=== PATIENT | female | born 1955 | race Caucasian/White ===

== ENCOUNTER 2023-05-21 16:33 | Emergency (ER) | payer OTHER, SELFPAY ==
[2023-05-21 16:40] VITALS: BP 135/76
[2023-05-21 17:00] LABS: % Basophils 0.3 % (0-2); % Eosinophils 1.3 % (0-6); % Immature Granulocytes 0.2 % (0-0.5); % Lymphocytes 24.7 % (20.5-51.1); % Monocytes 8.2 % (1.7-9.3); % Neutrophils 65.3 % (42.2-75.2); Absolute Eosinophils 0.1 10^3/uL (0-0.7); Absolute Lymphocytes 1.6 10^3/uL (1.2-3.4); Absolute Monocytes 0.5 10^3/uL (0.1-0.6); Absolute Neutrophils 4.2 10^3/uL (1.4-6.5); Hematocrit 38.2 % (37.0-47.0); Mean Platelet Volume 9.9 fL (7.4-10.4); Nucleated Red Blood Cells % 0 %; Platelet Count 231 10^3/uL (130-400); Red Blood Cell Count 3.94 10^6/uL (4.20-5.40); Red Cell Dist. Width 12.4 % (11.5-14.5); White Blood Cell Count 6.4 10^3/uL (4.8-10.8)
[2023-05-21 17:06] LABS: Urine Albumin Negative (Neg - Trace); Urine Bilirubin Negative (Negative); Urine Character Clear (Clear); Urine Color Yellow; Urine Glucose Negative (Negative); Urine Ketone Negative (Negative); Urine Leukocyte Negative (Negative); Urine Nitrite Negative (Negative); Urine Occult Blood Negative (Negative); Urine Urobilinogen Negative (Neg - 1+)
[2023-05-21 17:15] LABS: ALT (SGPT) 20 U/L (0-35); AST (SGOT) 35 U/L (14-36); Albumin 4.7 g/dl (3.5-5.0); Alkaline Phosphatase 63 U/L (38-126); Blood Urea Nitrogen 18 mg/dl (7-17); Calcium 9.3 mg/dl (8.4-10.2); Carbon Dioxide 30 mmol/L (22-30); Chloride 101 mmol/L (98-107); Glucose 101 mg/dl (70-99); Lipase 169 U/L (23-300); Potassium 4.1 mmol/L (3.5-5.1); Sodium 135 mmol/L (135-145); Total Bilirubin 0.4 mg/dl (0.2-1.3); Total Protein 7.4 g/dl (6.3-8.2); eGFR > 60.00
[2023-05-21 18:11] VITALS: BMI 24.1
[2023-05-21 18:13] VITALS: BP 143/80
--- NOTE | 2023-05-21 18:18 | ED.GENMED ---
History of Present Illness
General
Chief Complaint: Abdominal Pain
Source: patient and spouse
Exam Limitations: none
Time Seen by Provider: 05/21/23 17:56
Nursing documentation reviewed up to this point in time: agreed with
Travel History
Have you had any contact with someone who has COVID-19?: No
Do you have any symptoms of coronavirus? Fever > 100 degrees, chills, cough, shortness of breath, sore throat, loss of taste or smell, muscle aches, or headache?: No
History of Present Illness
History of Present Illness:
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
few days with radiation to the right flank associated nausea no vomiting no diarrhea.
Past History
Past History
ED Past Medical History: Asthma, Other and Other
ED Past Surgical History: None and Orthopedic
Social History
Tobacco: Non-smoker
Alcohol: None
Drug: None
Personal:
Living: with family
Employment: Other
Family History
Family History: Other
Review of Systems
Review of Systems
Allergies reviewed?: Yes
All Other Systems: ROS reviewed and negative except as documented in HPI and ROS
Phy Exam
Physical Exam
Physical Exam:
GENERAL: Alert , in no apparent distress
EYE: pupils equal and reactive
NECK: Supple, no significant adenopathy.
ENT: o/p clr, mmm.
CARDIAC: Regular rate and rhythm .
LUNGS: Clear breath sounds bilaterally, no acute respiratory distress, no wheezes/rales/rhonchi
ABDOMEN: Right lower quad abdominal pain otherwise soft benign abdomen
NEUROLOGICAL: Alert and oriented, no focal neuro deficits
SKIN: Warm and dry, skin intact.
MUSCULOSKELETAL: No edema, well perfused.
PSYCH: Normal and appropriate interaction.
Course
Orders/Labs/Results
Orders:
Orders
05/21/23 16:45
IV Insert/Care/Rem.- Treatment PRN
05/21/23 16:51
Complete Blood Count/With Diff Urgent
Comprehensive Metabolic Panel Urgent
Lipase Urgent
05/21/23 16:57
Urinalysis Reflex To Culture Urgent
Date Specimen was Collected: 05/21/23
Time Specimen was Collected: 16:56
05/21/23 18:17
CT Abd/Pel (IV only)-DH only Urgent
Comment:
Reason For Exam: rlq pain
05/21/23 19:16
Morphine Sulfate 4 mg IV NOW STA
05/21/23 20:31
Dicyclomine HCl [Bentyl] 20 mg IM NOW STA
Abnormal Lab Results
05/21/23
16:51
RBC 3.94 L 10^6/uL
(4.20-5.40)
MCH 33.0 H pg
(27.0-31.0)
BUN 18 H mg/dl
(7-17)
Glucose 101 H mg/dl
(70-99)
05/21/23 16:51
05/21/23 16:51
Vital Signs
Initial and Last Documented VS:
Initial Vital Signs
Temp Pulse Resp BP Pulse Ox
97.2 F 76 18 135/76 100
05/21/23 16:40 05/21/23 16:40 05/21/23 16:40 05/21/23 16:40 05/21/23 16:40
Last Documented Vital Signs
Temp Pulse Resp BP Pulse Ox
97.2 F 80 16 130/69 98
05/21/23 16:40 05/21/23 18:13 05/21/23 18:13 05/21/23 20:00 05/21/23 20:15
MDM/Problems Addressed
MDM/Problems Addressed:
68-year-old female presenting to the emergency department today with concerns of right lower quadrant Viet pain worsening over the past few days with some radiation to the right side. Reproducible tenderness to McBurney's point. Otherwise
abdomen soft. On arrival patient is afebrile vital signs are normal labs unremarkable no white count normal urinalysis. CT obtained without any emergent findings or surgical pathology. Patient generally well-appearing at time of reassessment.
Patient vies for close GI follow-up and return precautions given.
*Critical Care Note
Total Time (30-74mins, 75-104mins- exclusive of procedures): Not Applicable
ED Attending Note
-
Portions of this chart may have been created with voice recognition software.� Occasional wrong word or��sound alike� substitutions may have occurred due to the inherent limitations of voice recognition software.
Discharge Plan
Departure
Patient Disposition: Home (Routine Discharge)
Date of Disposition: 05/21/23
Time of Disposition: 20:36
Patient with high blood pressure during this ER visit?: No
Condition: Good
Covid-19: Not Applicable
Discharge Problem:
Abdominal pain
Instructions: Abdominal Pain
Prescriptions:
New
dicyclomine 10 mg capsule
10 mg PO QID PRN (Reason: abdominal pain) Qty: 10 0RF
No Action
montelukast 10 MG tablet
10 mg PO DAILY
cholecalciferol (vitamin D3) 2,000 UNIT tablet
2,000 unit PO DAILY
fluticasone propion-salmeterol [Advair Diskus] 250-50 mcg/dose Blister With Device
1 inh INHALATION R BID
fexofenadine 60 mg Tablet
60 mg PO DAILY
calcium carbonate 500 mg calcium (1,250 mg) Tablet
500 mg PO DAILY
albuterol sulfate [ProAir HFA] 90 mcg/actuation Hfa Aerosol Inhaler
2 puff INHALATION R QIDPRN PRN (Reason: sob)
acetaminophen [Pain Relief ES (acetaminophen)] 500 mg tablet
1,000 mg PO DAILYPRN PRN (Reason: fever)
famotidine 40 mg Tablet
40 mg PO HS Qty: 30 0RF
vancomycin 125 mg capsule
125 mg PO QID Qty: 28 0RF
Referrals:
Aide Elliott MD [Family Provider] -
Jensen Theodore MD [Active] - Follow up in 1 week
Activity Restrictions/Additional Instructions:
You came to the emergency department today with concerns of abdominal discomfort. Here you had a reassuring evaluation in the ER. It is recommended to follow-up closely with GI and you can take Bentyl 1 tab 6 to 8 hours as needed. Return to the
department any worsening, new or concerning symptoms.
Interventions
Interventions:
*Risk Screen - Suicide Last Done: 05/21/23 16:40
*General Assessment Last Done: 05/21/23 16:40
*Neglect/Abuse Screening Last Done: 05/21/23 16:40
*ED COVID-19 Vaccine History Last Done: 05/21/23 18:06
EQ-Mldltl-Iqxqvrnvav Assessment Last Done: 05/21/23 18:12
Discharge Date and Time
Print Language: PORTUGUESE
[2023-05-21] MEDS: MORPHINE SULFATE 4 MG IV (19:28)
[2023-05-21 19:30] VITALS: BP 142/73
[2023-05-21 20:00] VITALS: BP 130/69
[2023-05-21] MEDS: BENTYL 20 MG IM (20:36)
== END 2023-05-21 20:47 | disposition home or self-care (01) ==
LOC: EMR 16:33
PROVIDERS: Emergency Medicine; EMERGENCY PHYSICIAN Emergency Medicine; FAMILY PHYSICIAN Emergency Medicine
DX: R10.31 Right lower quadrant pain (principal); K21.9 Gastro-esophageal reflux disease without esophagitis; J45.909 Unspecified asthma, uncomplicated
CPT/HCPCS: 99285; 96374; 96372; 74177; 80053; 81003; 83690; 85025; Q9967

== ENCOUNTER → 2023-05-27 09:04 | Outpatient (REF) | payer OTHER, SELFPAY ==
[2023-05-27 12:52] LABS: IgA 100 mg/dl (70-400)
[2023-05-29 11:18] LABS: Endomysial IgA Antibody Titer <1:10 (<1:10)
[2023-06-02 15:17] LABS: tTG IgA Antibody 3.5 EU/ml (0-19); tTG IgG Antibody 11.9 EU/ml (0-19)
== END ==
LOC: REG 09:04
PROVIDERS: ATTENDING PHYSICIAN Specialist; FAMILY PHYSICIAN Emergency Medicine
DX: R14.0 Abdominal distension (gaseous) (principal)
CPT/HCPCS: 36415; 82784; 83516; 86231

== ENCOUNTER → 2023-06-23 15:54 | Outpatient (REF) | payer OTHER, SELFPAY | LOC: WDC 15:54 | PROVIDERS: ATTENDING PHYSICIAN Obstetrics & Gynecology; FAMILY PHYSICIAN Emergency Medicine | DX: Z12.31 Encounter for screening mammogram for malignant neoplasm of breast (principal) | CPT/HCPCS: 77063; 77067 ==

== ENCOUNTER → 2023-07-22 16:33 | Outpatient (REF) | payer OTHER, SELFPAY ==
[2023-07-22 17:28] LABS: Hematocrit 42.4 % (37.0-47.0); Hemoglobin 14.2 g/dL (12.0-16.0); Mean Corp Hgb Conc. 33.5 g/dL (33.0-37.0); Mean Corpuscular Hgb 33.5 pg (27.0-31.0); Mean Platelet Volume 10.6 fL (7.4-10.4); Platelet Count 205 10^3/uL (130-400); Red Blood Cell Count 4.24 10^6/uL (4.20-5.40); Red Cell Dist. Width 12.2 % (11.5-14.5); White Blood Cell Count 7.4 10^3/uL (4.8-10.8)
[2023-07-22 18:02] LABS: Blood Urea Nitrogen 22 mg/dl (7-17); Calcium 10.1 mg/dl (8.4-10.2); Carbon Dioxide 31 mmol/L (22-30); Chloride 100 mmol/L (98-107); Glucose 81 mg/dl (70-99); Potassium 4.1 mmol/L (3.5-5.1); Sodium 139 mmol/L (135-145); eGFR > 60.00
[2023-07-22 18:31] LABS: TSH 1.07 uIU/ml (0.47-4.68)
[2023-07-22 18:50] LABS: Vitamin B12 517 pg/ml (239-931)
[2023-07-25 05:34] LABS: Vitamin D 1,25 Dihydroxy 33.1 pg/mL (19.9-79.3)
== END ==
LOC: REG 16:33
PROVIDERS: ATTENDING PHYSICIAN Emergency Medicine
DX: R47.89 Other speech disturbances (principal)
CPT/HCPCS: 36415; 80048; 82607; 82652; 84443; 85027

== ENCOUNTER → 2024-06-23 11:52 | Outpatient (REF) | payer OTHER, SELFPAY | LOC: WDC 11:52 | PROVIDERS: ATTENDING PHYSICIAN Obstetrics & Gynecology; FAMILY PHYSICIAN Emergency Medicine | DX: Z12.31 Encounter for screening mammogram for malignant neoplasm of breast (principal) | CPT/HCPCS: 77063; 77067 ==

== ENCOUNTER → 2024-07-05 06:55 | Outpatient (REF) | payer OTHER, SELFPAY ==
[2024-07-05 07:40] LABS: Urine Albumin Negative (Neg - Trace); Urine Bilirubin Negative (Negative); Urine Character Clear (Clear); Urine Color Yellow; Urine Glucose Negative (Negative); Urine Ketone Negative (Negative); Urine Leukocyte 1+ (Negative); Urine Nitrite Negative (Negative); Urine Occult Blood 1+ (Negative); Urine Urobilinogen Negative (Neg - 1+)
[2024-07-05 07:53] LABS: % Basophils 0.3 % (0-2); % Eosinophils 2.4 % (0-6); % Immature Granulocytes 0.2 % (0-0.5); % Lymphocytes 30.8 % (20.5-51.1); % Monocytes 8.9 % (1.7-9.3); % Neutrophils 57.4 % (42.2-75.2); Absolute Eosinophils 0.1 10^3/uL (0-0.7); Absolute Lymphocytes 1.8 10^3/uL (1.2-3.4); Absolute Monocytes 0.5 10^3/uL (0.1-0.6); Absolute Neutrophils 3.4 10^3/uL (1.4-6.5); Hemoglobin 13.9 g/dL (12.0-16.0); Mean Corp Hgb Conc. 33.1 g/dL (33.0-37.0); Mean Corpuscular Hgb 33.3 pg (27.0-31.0); Mean Corpuscular Volume 100.7 fL (81.0-99.0); Mean Platelet Volume 10.7 fL (7.4-10.4); Nucleated Red Blood Cells % 0 %; Platelet Count 195 10^3/uL (130-400); Red Blood Cell Count 4.17 10^6/uL (4.20-5.40); Red Cell Dist. Width 12.6 % (11.5-14.5)
[2024-07-05 08:02] LABS: ALT (SGPT) 20 U/L (0-35); AST (SGOT) 28 U/L (14-36); Albumin 4.3 g/dl (3.5-5.0); Alkaline Phosphatase 50 U/L (38-126); Blood Urea Nitrogen 17 mg/dl (7-17); Calcium 9.5 mg/dl (8.4-10.2); Carbon Dioxide 34 mmol/L (22-30); Chloride 106 mmol/L (98-107); Glucose 76 mg/dl (70-99); HDL Cholesterol 98 mg/dl; LDL Cholesterol, Calculated 97 mg/dl; Potassium 4.4 mmol/L (3.5-5.1); Sodium 144 mmol/L (135-145); Total Cholesterol 214 mg/dl (50-199); Total Protein 6.9 g/dl (6.3-8.2); Triglyceride 98 mg/dl (10-149); Very Low Density Lipoprotein 19 mg/dl (0-30); eGFR > 60.00
[2024-07-05 08:25] LABS: Total Bilirubin 0.6 mg/dl (0.2-1.3)
[2024-07-05 08:29] LABS: Urine Urothelial Cell 0-2 /LPF (FEW)
[2024-07-05 08:30] LABS: Urine Bacteria Few (Negative); Urine Red Blood Cell 0-2 /HPF (0-2)
== END ==
LOC: REG 06:55
PROVIDERS: ATTENDING PHYSICIAN Emergency Medicine
DX: Z00.00 Encounter for general adult medical examination without abnormal findings (principal); E78.00 Pure hypercholesterolemia, unspecified; Z13.29 Encounter for screening for other suspected endocrine disorder; Z13.0 Encounter for screening for diseases of the blood and blood-forming organs and certain disorders involving the immune mechanism; Z13.89 Encounter for screening for other disorder
CPT/HCPCS: 36415; 80053; 80061; 81003; 81015; 84443; 85025

== ENCOUNTER → 2024-07-21 15:53 | Outpatient (REF) | payer OTHER, SELFPAY ==
[2024-07-21 17:25] LABS: Vitamin B12 686 pg/ml (239-931)
== END ==
LOC: REG 15:53
PROVIDERS: ATTENDING PHYSICIAN Emergency Medicine
DX: D75.89 Other specified diseases of blood and blood-forming organs (principal)
CPT/HCPCS: 36415; 82607

== ENCOUNTER → 2024-08-04 08:21 | Outpatient (REF) | payer OTHER, SELFPAY | LOC: HWRAD 08:21 | PROVIDERS: ATTENDING PHYSICIAN Physician Assistant; FAMILY PHYSICIAN Emergency Medicine | DX: R10.2 Pelvic and perineal pain (principal) | CPT/HCPCS: 76700; 76830; 76856 ==

== ENCOUNTER 2024-12-09 08:59 | Emergency (ER) | payer OTHER, SELFPAY ==
[2024-12-09 09:03] VITALS: BP 119/66
--- NOTE | 2024-12-09 10:09 | ED.GENMED ---
History of Present Illness
General
Chief Complaint: Musculo-Skeletal Complaint
Time Seen by Provider: 12/09/24 09:34
History of Present Illness
History of Present Illness:
FOCUSED PAST MEDICAL HISTORY
- Diverticular disease, history of Sarkar's neuroma
REVIEW OF OLD RECORDS
- The patient was seen here with abdominal pain 2023
Note:
CHIEF COMPLAINT(S)
Right ankle and foot pain after rolling ankle.
HISTORY OF PRESENT ILLNESS
The patient is a 69-year-old female who presented with right ankle and foot pain following an incident the previous night. While walking on a raised pavement, her right foot rolled inward, causing her to fall forward and result in minor abrasions on
her left hand. She did not strike her head during the fall and denies any neck or abdominal pain. After the incident, she was able to continue walking but experienced increased shifting pain in the ankle, particularly when weight bearing. Upon
palpation, tenderness was noted over the metatarsal region of the right foot. An ankle X-ray was performed, and the radiologist reported it as normal. However, the patient reported significant tenderness in the metatarsal area. The patients refusal
to take medication was due to having nothing on her stomach.
PAST MEDICAL AND SURGICAL HISTORY
Not provided in the conversation.
PHYSICAL EXAM
General: Alert, no acute distress.
Skin: Warm, dry. Minor abrasions noted on the palmar side of the left hand.
Head: Normocephalic, atraumatic.
Neck: Supple, trachea midline.
Eye Ears, nose, mouth and throat: Oral mucosa moist.
Cardiovascular: Normal peripheral perfusion, no edema.
Respiratory: Respirations are non-labored.
Gastrointestinal: Abdomen nondistended.
Back: Normal range of motion, normal alignment.
Musculoskeletal: Tenderness over right foot metatarsals dorsally at the midfoot, normal range of motion in other areas, normal strength.
Neurological: Alert and oriented to person, place, time, and situation, no focal neurological deficit observed.
Psychiatric: Cooperative, appropriate mood & affect.
PROBLEM LIST
Acute Problems:
- Right ankle and foot pain after rolling ankle.
- Minor abrasions on the left hand.
PLAN
1. Provide a supportive boot and crutches to relieve pressure from the right ankle and foot.
2. Consideration of motrin for pain management, with advising intake of food first.
DIFFERENTIAL DIAGNOSIS
The Differential Diagnosis includes, in no particular order and is not limited to:
1. Ankle sprain
2. Metatarsal fracture
3. Ligamentous injury of the foot
4. Contusion of the foot
5. Tendon injury
6. Soft tissue injury
7. Osteoarthritis exacerbation
8. Peripheral nerve injury
9. Gout
10. Bursitis
RADIOLOGY
- No sign of fracture of the right foot or ankle
UPDATE
-SUMMARY OF ENCOUNTER
The patient is a 69-year-old female who presented with right ankle and foot pain after rolling her ankle on a raised pavement the previous evening. The initial assessment included an X-ray, and my independent interpretation aligns with the radiology
report which was normal, showing no fractures in the ankle or foot. The incident led to increased pain upon walking, with significant tenderness upon palpation over the metatarsal region. The management plan in the emergency department involved
advising the use of a supportive boot and crutches to relieve pressure and recommending ibuprofen (Motrin) for pain management, as well as elevating the leg and minimizing weight-bearing activities.
DISPOSITION
Discharge.
ASSESSMENT
The patient likely sustained a sprain of the foot, possibly involving stretched ligaments causing local inflammation.
PLAN
The patient was instructed to keep the leg elevated as much as possible, avoid weight-bearing activities, and consider using ibuprofen for pain relief. The use of a supportive boot and crutches has been advised to aid recovery.
INDEPENDENT REVIEW OF LABS AND INTERPRETATION OF TESTS
My independent interpretation of the ankle X-ray is consistent with the radiology report, showing normal findings with no fractures evident.
PATIENT EDUCATION AND COUNSELING
The patient was educated on the likely diagnosis of a foot sprain and the importance of rest, elevation, and pain management. She was advised to follow up with Dr. Sheeba salazar or an glaucoma specialist as needed, should symptoms persist or worsen.
FOLLOW-UP INSTRUCTIONS
If the patient continues to experience significant discomfort or inability to bear weight by Wednesday, she should contact Dr. Kim's office for further evaluation. If symptoms improve significantly, a follow-up may not be necessary.
MEDICATION RECONCILIATION
Ibuprofen (Motrin) was recommended for pain management with advice to take with food.
MEDICAL DECISION MAKING
- Number and Complexity of Problems Addressed: Acute right ankle and foot pain due to a sprain.
- Data:
Category 1: My independent interpretation of the patients ankle X-ray is consistent with normal findings and aligns with the radiology report.
- Risk: Prescription medication for pain management was considered and recommended.
DIAGNOSIS
- Sprain of the foot (ICD-10: S93.4XXA)
Past History
Past History
ED Past Medical History: Asthma, Other and Other
ED Past Surgical History: None and Orthopedic
Social History
Tobacco: Non-smoker
Alcohol: None
Drug: None
Personal:
Living: with family
Employment: Other
Family History
Family History: Other
Phy Exam
Physical Exam
Physical Exam:
See HPI
Course
Orders/Labs/Results
Orders:
Orders
12/09/24 09:06
Ankle, Right 3 view CR [CR Ankle - Right Min 3 Views *] Urgent
Comment:
Reason For Exam: pain
12/09/24 10:18
Crutches-Treatment ONCE
boot [Ortho Boot Right- Treatment] ONCE
Short or tall?: Short
CR Foot - Right Min 3 Views Urgent
Comment:
Reason For Exam: mid MT tender trauma
Vital Signs
Initial and Last Documented VS:
Initial Vital Signs
Temp Pulse Resp BP Pulse Ox
36.3 C 78 16 119/66 100
12/09/24 09:03 12/09/24 09:03 12/09/24 09:03 12/09/24 09:03 12/09/24 09:03
Last Documented Vital Signs
Temp Pulse Resp BP Pulse Ox
36.3 C 78 16 119/66 100
12/09/24 09:03 12/09/24 09:03 12/09/24 09:03 12/09/24 09:03 12/09/24 10:10
*Pulse Oximetry
SaO2: 100
Oxygen Mode of Delivery: Room air
Patient hypoxic: no
*Critical Care Note
Total Time (30-74mins, 75-104mins- exclusive of procedures): Not Applicable
ED Attending Note
-
Portions of this chart may have been created with voice recognition software.� Occasional wrong word or��sound alike� substitutions may have occurred due to the inherent limitations of voice recognition software.
Discharge Plan
Departure
Patient Disposition: Home (Routine Discharge)
Date of Disposition: 12/09/24
Time of Disposition: 11:11
Patient with high blood pressure during this ER visit?: Yes
Discharge Problem:
Right foot sprain
Instructions: Foot sprain, BLOOD PRESSURE
Prescriptions:
No Action
montelukast 10 MG tablet
10 mg PO DAILY
cholecalciferol (vitamin D3) 2,000 UNIT tablet
2,000 unit PO DAILY
fluticasone propion-salmeterol [Advair Diskus] 250-50 mcg/dose Blister With Device
1 inh INHALATION R BID
fexofenadine 60 mg Tablet
60 mg PO DAILY
calcium carbonate 500 mg calcium (1,250 mg) Tablet
500 mg PO DAILY
albuterol sulfate [ProAir HFA] 90 mcg/actuation Hfa Aerosol Inhaler
2 puff INHALATION R QIDPRN PRN (Reason: sob)
acetaminophen [Pain Relief ES (acetaminophen)] 500 mg tablet
1,000 mg PO DAILYPRN PRN (Reason: fever)
famotidine 40 mg Tablet
40 mg PO HS Qty: 30 0RF
vancomycin 125 mg capsule
125 mg PO QID Qty: 28 0RF
dicyclomine 10 mg capsule
10 mg PO QID PRN (Reason: abdominal pain) Qty: 10 0RF
Referrals:
Aide Elliott MD [Family Provider, Internal Medicine]
Ankur Marie MD [Active, Orthopedics]
Activity Restrictions/Additional Instructions:
Radiologist read both right ankle and right foot x-rays as no fracture. I recommend 3-4 [id number] ibuprofen (Motrin) every 8 hours with food for a few days. Return here if worse. I have given the contact information for a local orthopedist
if needed.
Interventions
Interventions:
*Risk Screen - Suicide Last Done: 12/09/24 09:03
*Neglect/Abuse Screening Last Done: 12/09/24 09:03
*ED- Fall Risk Assessment Last Done: 12/09/24 09:58
*ED COVID-19 Vaccine History Last Done: 12/09/24 09:58
*ED Influenza Vaccine History Last Done: 12/09/24 09:58
ED-Musculoskeletal Assessment Last Done: 12/09/24 09:58
Discharge Date and Time
Print Language: SYRIAC
[2024-12-09 11:00] VITALS: BP 126/75
== END 2024-12-09 11:25 | disposition home or self-care (01) ==
LOC: EMR 08:59
PROVIDERS: EMERGENCY PHYSICIAN Emergency Medicine; FAMILY PHYSICIAN Emergency Medicine
DX: S93.601A Unspecified sprain of right foot, initial encounter (principal); S60.512A Abrasion of left hand, initial encounter; X50.1XXA Overexertion from prolonged static or awkward postures, initial encounter; J45.909 Unspecified asthma, uncomplicated
CPT/HCPCS: 99283; 73610; 73630

== ENCOUNTER → 2024-12-20 10:41 | Outpatient (REF) | payer OTHER, SELFPAY | LOC: HWRAD 10:41 | PROVIDERS: ATTENDING PHYSICIAN Specialist Research Data Abstracter/Coder | DX: M79.671 Pain in right foot (principal) | CPT/HCPCS: 73630 ==

== ENCOUNTER → 2025-01-22 08:49 | Outpatient (REF) | payer OTHER, SELFPAY | LOC: WDC 08:49 | PROVIDERS: ATTENDING PHYSICIAN Emergency Medicine | DX: M81.0 Age-related osteoporosis without current pathological fracture (principal); R92.333 Mammographic heterogeneous density, bilateral breasts | CPT/HCPCS: 76641; 77080 ==